=== PATIENT | female | born 1935 | race Caucasian/White ===

== ENCOUNTER 2019-06-21 13:58 | Inpatient (IN) | payer OTHER ==
[~2019-06-21] VITALS: Ht 152.4 cm; Wt 77.3 kg
[~2019-06-21 13:58] MED LIST: ENABLEX15 MG; EVISTA; FLOMAX PO; NORCO 5-325 TA1 EACH PO; QUINAPRIL 20 MG20 MG PO; QUINU5 PD; ZOFRAN ODT4 MG PO
[2019-06-21 13:59] VITALS: BP 147/64
[2019-06-21 15:24] LABS: ABSOLUTE NEUTROPHILS 11.2 thou/uL (1.4-8.2); BASOPHILS 0.4 % (0.0-2.0); EOSINOPHILS 1.1 % (0.0-3.0); HEMATOCRIT 42.2 % (37.0-47.0); HEMOGLOBIN 13.9 gm/dL (12.0-15.0); LYMPHOCYTES 9.8 % (24.0-44.0); MCH 29.5 pg (26.0-34.0); MCV 89.3 fL (80.0-100.0); MONOCYTES 10.2 % (1.0-8.0); PLATELET COUNT 266 thou/uL (150-400); POLYS 78.5 % (36.0-66.0); RBC 4.73 mil/uL (4.20-5.00); RDW 14.6 % (10.5-14.5); WBC 14.3 thou/uL (4.0-11.0)
[2019-06-21 15:34] LABS: CALCIUM 9.2 mg/dL (8.5-10.1); CREATININE 0.9 mg/dL (0.6-1.0); POTASSIUM 4.3 mmol/L (3.5-5.1)
[2019-06-21 15:39] LABS: ALBUMIN 3.2 g/dL (3.4-5.0)
[2019-06-21 18:43] VITALS: BP 147/64
[2019-06-21 18:52] VITALS: BP 147/64
[2019-06-21 19:40] VITALS: BP 180/75
--- NOTE | 2019-06-22 04:11 | NUR ---
PATIENT ARRIVED ON UNIT AT 1919 VIA CART. ED PERSONEL ACCOMPANIED. UP SOON AFTER. DENIES PAIN. MILAGRO LOWER EXT RED AND EDAMATOUS. UP TO BSC WITH ASSIST OF 2 AND WALKER. SLEPT MOST OF NIGHT.
[2019-06-22 05:28] LABS: ABSOLUTE NEUTROPHILS 9.8 thou/uL (1.4-8.2); BASOPHILS 0.3 % (0.0-2.0); EOSINOPHILS 2.5 % (0.0-3.0); HEMATOCRIT 37.5 % (37.0-47.0); HEMOGLOBIN 12.5 gm/dL (12.0-15.0); LYMPHOCYTES 9.9 % (24.0-44.0); MCH 29.6 pg (26.0-34.0); MCHC 33.2 g/dL (28.0-37.0); MCV 89.1 fL (80.0-100.0); MONOCYTES 9.8 % (1.0-8.0); PLATELET COUNT 257 thou/uL (150-400); POLYS 77.5 % (36.0-66.0); RDW 14.1 % (10.5-14.5); WBC 12.6 thou/uL (4.0-11.0)
[2019-06-22 06:03] LABS: CALCIUM 8.4 mg/dL (8.5-10.1); CREATININE 0.7 mg/dL (0.6-1.0); POTASSIUM 4.5 mmol/L (3.5-5.1)
--- NOTE | 2019-06-22 08:59 | NUR ---
WOUND CARE CONSULT; WAS CONSULTED IN ERROR. THIS PATIENT HAS ONLY LYMPHEDEMA MANAGED BY PHYSICAL THERAPY (TANI) WHO HAS ALREADY SEEN THIS PATIENT. NO NEED TO FOLLOW; I WILL D/C CONSULT
[2019-06-22 09:56] VITALS: BP 133/55
--- NOTE | 2019-06-22 12:12 | NUR ---
Case opened to follow for dc planning. Pt is a&ox4 and indicates that she lives with her spouse of 60 years at [facility]. She uses a rollarwalker, cane and a scooter as needed. They have meals and housekeeping provided as well as many activites. Their only child, Dterich Zimmerman, lives in [place] and is aware that she is here. She goes 2xwkly to outpt lymphodema therapy. She reports her spouse to be in good health. She is not interested in SNF or HH,but would discuss further if recommended. She is anticipating dc to home with outpt f/u. CM role introduced. Will follow. Pt is on iv atb. Her pcp is Dr. Rodriguez.
--- NOTE | 2019-06-22 15:06 | NUR ---
PT A&OX4, IV INTACT IN L AC. TRANSFERS WITH ASSIST AND WALKER. BILAT. LOWER EXTREMITITES ARE WRAPPED BY PT/OT. TOLERATING PO PAIN MEDS WELL AND HAS A GOOD APPETITE. SPOUSE AT BEDSIDE. WILL CONT POC.
[2019-06-22 18:29] VITALS: BP 163/58
--- NOTE | 2019-06-22 19:23 | NUR ---
DRSG TO R LOWER EXTREMITY CHANGED ORDERED W/O ANTIBIOTIC TOPICAL MED WAS NOT AVAILABLE.
[2019-06-22 20:08] VITALS: BP 146/67
--- NOTE | 2019-06-23 04:17 | NUR ---
PATIENT ALERT AND ORIENTED X4. C/O PAIN X1, MED GIVEN. INC OF URINE. BED CHANGED WELL DRESSING ON MILAGRO LOWER EXT. REMAINS ON BEDREST. SLEPT MOST OF THE NIGHT.
[2019-06-23 06:31] LABS: HEMATOCRIT 38.4 % (37.0-47.0); HEMOGLOBIN 12.7 gm/dL (12.0-15.0); MCH 29.4 pg (26.0-34.0); MCV 88.9 fL (80.0-100.0); RBC 4.32 mil/uL (4.20-5.00); RDW 14.4 % (10.5-14.5)
[2019-06-23 06:57] LABS: ALBUMIN 2.1 g/dL (3.4-5.0); CALCIUM 8.3 mg/dL (8.5-10.1); CREATININE 0.8 mg/dL (0.6-1.0); POTASSIUM 4.1 mmol/L (3.5-5.1); TOTAL BILIRUBIN 0.8 mg/dL (<0.1-1.0); TOTAL PROTEIN 5.3 g/dL (6.4-8.2)
[2019-06-23 08:01] VITALS: BP 150/72
--- NOTE | 2019-06-23 09:42 | NUR ---
Nutrition: Pt assessed d/t RD identified need. Here for cellulitis of foot, w/ R LE venous stasis ulcers. Hx CHF, chronic lymphedema, HTN, severe aortic stenosis. On a heart healthy diet, witnessed almost 100% of breakfast completed. Pt denies any nutrition concerns, reports a great, stable appetite. States she eats well balanced meals at home, is not picky and eats multiple meals per day. Denies any known weight changes/loss; no weight hx in EMR to review. RD explained importance of good nutrition from variety of protein sources and also encouraged lots of fruits/vegetables. Pt consumes all of the above in plentiful. Had skim milk, turkey sausage, macanese toast this AM. Reviewed upcoming protein items on menus. Note mention of malnutrition in provider notes - defer dx at this time. Low nutrition risk.
--- NOTE | 2019-06-23 14:19 | NUR ---
S/W DR RODRIGUEZ, WITH PT AND WITH HER HSUBAND AND DISCUSSED SNF [facility] POSSIBILITIES. PT'S SPOUSE WOULD LIKE TO GO TO A [facility] FACILITY IF POSSIBLE. DISCUSSED [facility] VALENTIN. HE IS GOING TO CALL SOMEONE AND GET BACK WITH ME. HE IS INTERESTED IN [facility], LEFT MESSAGE WITH THEM TO SEE IF THEY ACCEPT [facility].
--- NOTE | 2019-06-23 16:12 | NUR ---
RECEIVED CALL BACK FROM PT'S AND HE IS INSISTENT ON PT BEING EVALUATED FOR [facility]. S/W PETER AT [facility] AND FAXED REFERRAL TO HER. FAXED SKILLED [facility] LIST TO PT'S ALSO & ASKED HIM TO CHOOSE 3 SKILLED FACILITIES FOR BACK-UP. FOLLOWING.
[2019-06-23 19:35] VITALS: BP 148/85
--- NOTE | 2019-06-23 23:07 | HC ---
[facility] [place] [address] CONSULTATION Name: GAGE DELACRUZ Room #: 437-P [facility] IN M.R.#: [id number] Admission: 06/21/19 Attend Phys: Gabriel Villegas MD Discharge: Date of : 34 Report #: [id number] THIS REPORT FOR: //name// CC: Gabriel Rodriguez INFECTIOUS DISEASE CONSULTATION REASON FOR CONSULTATION: I was asked to evaluate concerning right lower extremity venous stasis, wound infection, and cellulitis. HISTORY OF PRESENT ILLNESS: The patient is an 84-year-old with underlying severe aortic stenosis, status post tissue valve replacement. She has chronic lymphedema. She presents now with increased pain, swelling, and erythema involving the right lower extremity. Denies any fever, chills or sweats. She has had issues with this for some time. She is nondiabetic. No tobacco use. No specific trauma. ALLERGIES: None known. MEDICATIONS: Quinapril prior to her admission. Now on vancomycin. PAST MEDICAL HISTORY: Hypertension, lymphedema, aortic stenosis, status post tissue valve replacement, congestive heart failure, hysterectomy, laparoscopic cholecystectomy, nephrolithiasis, coronary bypass grafting, right shoulder repair, cataract surgery. FAMILY HISTORY: Noncontributory. SOCIAL HISTORY: Nonsmoker, no significant alcohol intake. REVIEW OF SYSTEMS: Denies any cough, sputum, nausea, vomiting, diarrhea, dysuria or frequency. No visual complaints. No oral lesions or dental issues. No arthritis symptoms other than stiffness. Denies any neurologic changes. No diabetes. No issues with blood clots or bleeding. Full 10-point review was negative other than what has been described above. PHYSICAL EXAMINATION: VITAL SIGNS: Afebrile and hemodynamically stable. GENERAL: She was obese. EXTREMITIES: She has had 3+ lower extremity edema on the right, 2+ on the left. Both lower extremities were wrapped with gauze wrapping followed by Rajat wraps. These were just changed. She had evidence of cellulitis proximal calf on the right extending up into her thigh. Mild tenderness in the medial thigh. Toes were warm to touch. Good capillary refill. Sensation intact bilaterally. EYES: Without scleral icterus. MOUTH: Without mucositis. [facility] [address] [place] [address] CONSULTATION Name: GAGE DELACRUZ Room #: 437-P [facility] IN M.R.#: [id number] Admission: 06/21/19 Attend Phys: Gabriel Villegas MD Discharge: Date of : 34 Report #: [id number] NECK: Supple. LUNGS: Clear, without adventitial sounds. HEART: Regular with crisp valve sound. ABDOMEN: Soft, nontender, obese. No hepatosplenomegaly or mass. EXTREMITIES: As noted. Mood pleasant. No evidence of depression or anxiety. NEUROLOGIC: Cranial nerves intact. Strength in upper and lower extremities was symmetric. Sensation to touch normal upper and lower extremities. LABORATORY STUDIES: Reviewed. MICROBIOLOGY: Reviewed. X-ray of the right foot soft tissue swelling. No other bony changes other than osteopenia. ASSESSMENT: 1. Right lower extremity venous stasis disease with chronic lymphedema and ulcerations with secondary infection. 2. Hypertension. 3. Aortic stenosis, status post tissue prosthetic valve. 4. Urinary incontinence. 5. Coronary artery disease. RECOMMENDATIONS: We will continue IV antibiotic therapy, wound care, and edema control. <ELECTRONICALLY SIGNED> By: Thomas Abreu MD 06/23/19 [id number] Thomas Abreu MD /nt
--- NOTE | 2019-06-24 04:47 | NUR ---
PATIENT ALERT AND ORIENTED X4. NO C/O PAIN. SLEPT MOST OF NIGHT. INC OF BLADDER. MILAGRO WRAPS ON LOWER EXT.
[2019-06-24 05:49] LABS: HEMOGLOBIN 13.1 gm/dL (12.0-15.0); MCH 29.3 pg (26.0-34.0); MCHC 32.9 g/dL (28.0-37.0); MCV 89.1 fL (80.0-100.0); RBC 4.48 mil/uL (4.20-5.00); RDW 14.8 % (10.5-14.5); WBC 9.5 thou/uL (4.0-11.0)
[2019-06-24 06:07] LABS: CREATININE 0.9 mg/dL (0.6-1.0); POTASSIUM 4.2 mmol/L (3.5-5.1)
--- NOTE | 2019-06-24 14:41 | NUR ---
RECEIVED CALL FROM LAI FRANCO SAYING THAT INS IS SAYING THAT PT IS NOT CURRENTLY MEETING ACUTE REHAB THERAPY CRITERIA AT THIS POINT. TRIED TO CALL PT'S TO DISCUSS THIS AND MESSAGE ELFT FOR HIM TO ALERT OF THE ABOVE INFO & TO ASK HIM IF HE HAD REVIEWED THE SKILLED LIST THAT WAS FAXED TO HIM YESTERDAY FOR A BACK-UP PLAN.
--- NOTE | 2019-06-24 17:55 | NUR ---
ASSUMED CARE AROUND 0730. AXOX3. WOUND CARE RENDERED BY SAMUEL FREIRE AND WOUND CARE TEAM. PERSISTENT PAIN TO BLE AND ULE ADDRESSED TO AND NEW ORDERED RECEIVED. NO S/S ACUTE DISTRESS NOTED OR REPORTED AT THIS TIME. WILL CONT TO MONITOR FOR ANY CHANGES IN CONDITION.
[2019-06-24 19:23] VITALS: BP 151/52
[2019-06-25 04:00] VITALS: BP 144/76
--- NOTE | 2019-06-25 04:30 | NUR ---
PATIENT ALERT AND ORIENTED X4. NO C/O PAIN DURING THE NIGHT. COOPERATIVE WITH CARE. IVPB INFUSED W/O COMPLICATION. RESTING QUIETLY AT TIME OF NOTE. WILL MONITOR.
--- NOTE | 2019-06-25 18:05 | NUR ---
PT ASSESSED AT START OF SHIFT. TURNS W/ ASSIST. PT DECLINED TO GET OUT OF BED TODAY BUT AGREED TO GET UP TO CHAIR TOMORROW. EATING AND DRINKING FINE. NO BM FOR FEW DAYS. DENIES PAINS. DSNGS INTACT TO MILAGRO LE PER LYMPHEDEMA SPECIALIST TO BE CHANGED TWICE A WEEK.
[2019-06-25 18:36] VITALS: BP 165/76
[2019-06-25 20:33] VITALS: BP 157/76
--- NOTE | 2019-06-26 04:00 | NUR ---
PT LYING IN BED. REMAINS INCONTINENT OVER NIGHT. DENIES PAIN. RESTING COMFORTABLY. NO NEEDS VOICED. CALL LIGHT WITHIN REACH. WILL CONTINUE TO PROVIDE FREQUENT OBSERVATION.
[2019-06-26 09:11] VITALS: BP 167/81
--- NOTE | 2019-06-26 16:57 | NUR ---
PT ASSESSED AT START OF SHIFT. HAD SOFT FORMED BM THIS AM AND MIRALAX GIVEN WELL. EATING AND DRINKING FINE. TURNING Q2 HRS. NOT WANTING TO GET UP TO THE CHAIR. DR. FONTANA HERE THIS AFTERNOON AND CONFIRMED TO ALLOW LYMPHEDEMA THERAPIST TO DO THE DSNG CHANGES. NO C/O PAIN.
[2019-06-26 17:34] VITALS: BP 152/63
[2019-06-26 19:23] VITALS: BP 159/88
--- NOTE | 2019-06-27 01:07 | NUR ---
PT LYING IN BED. REMAINS INCONTINENT. DENIES PAIN. RESTING COMFORTABLY. NO NEEDS VOICED. CALL LIGHT WITHIN REACH. WILL CONTINUE TO PROVIDE FREQUENT OBSERVATION.
--- NOTE | 2019-06-27 07:55 | HC ---
[facility] [place] [address] CONSULTATION Name: GAGE DELACRUZ Room #: 437-P [facility] IN M.R.#: [id number] Admission: 06/21/19 Attend Phys: Gabriel Villegas MD Discharge: Date of : 34 Report #: [id number] THIS REPORT FOR: //name// CC: [facility] DATE OF SERVICE: 06/22/2019 HISTORY OF PRESENT ILLNESS: This is an 84-year-old female patient who was admitted to the hospital with lymphedema to the lower extremities and cellulitis of the right leg. She denies significant pain and seems to be in relatively good spirits. She knows that she has a chronic ulceration to the right foot and ankle region. There is draining and malodorous, but overall she states that she is in good spirits. PAST MEDICAL HISTORY: Positive for history of severe aortic stenosis, hypertension, lymphedema, congestive heart failure secondary to aortic stenosis. She has had previous kidney stones, coronary artery disease and previous right shoulder surgery. SOCIAL HISTORY: The patient admits to occasional alcohol consumption. Denies tobacco use. FAMILY HISTORY: Positive for cancer. ALLERGIES: No known drug allergies. MEDICATIONS: Include hydrocodone, ondansetron, Zosyn, and quinapril. REVIEW OF SYSTEMS: CONSTITUTIONAL: The patient denies fever, chills or weight loss. NEUROLOGICAL: The patient denies focal weakness, numbness or tingling. EYES: The patient denies visual changes, redness, or drainage. ENT: The patient denies earache, nasal drainage, sore throat. CARDIOVASCULAR: The patient denies chest pain or palpitations or diaphoresis. PULMONARY: The patient denies cough or shortness of breath. GASTROINTESTINAL: The patient denies nausea, vomiting, diarrhea or abdominal pain. ORTHOPEDIC: The patient complains of swelling, some pain, drainage and ulceration to the right ankle. Other systems in a 14-point review of systems are negative. PHYSICAL EXAMINATION: VITAL SIGNS: At this time include temperature 36.8, pulse 87, respiratory rate 18 and blood pressure 133/55. GENERAL: This is a chronically ill-appearing female patient who appears to be [facility] [address] [place] [address] CONSULTATION Name: GAGE DELACRUZ Room #: 437-P [facility] IN M.R.#: [id number] Admission: 06/21/19 Attend Phys: Gabriel Villegas MD Discharge: Date of : 34 Report #: [id number] in no distress. HEENT: Head normocephalic. Nose and throat clear. NECK: Supple. LUNGS: Clear. HEART: Regular rhythm. ABDOMEN: Soft. Bowel sounds are present. EXTREMITIES: Lower extremities demonstrate 2-3+ edema, more so on the right than the left. She has significant circumferential ulcerations with weeping and crusting involving the right ankle and dorsal foot area. There is odor present. A culture has been obtained by myself at the bedside today. LABORATORY DATA: Sodium 136, potassium 4.5, chloride 105, CO2 20, BUN 14, creatinine 0.7, glucose of 99. Lactic acid is 1.1. CRP is 153.4, total protein 7.0, albumin 3.2. White blood cell count is 12.6, hemoglobin 12.5. CLINICAL IMPRESSION: 1. Lymphedema, bilateral lower extremities. 2. Cellulitis of the right lower leg. 3. Venous type ulceration to the right foot and anterior ankle. RECOMMENDATIONS: At this point in time, culture and sensitivity was obtained. We will recommend empiric antibiotic therapy, pending cultures. We will start her on gentamicin ointment, Xeroform to the right leg, lymphedema therapy on the left with wrapping, elevation of the right leg, resume lymphedema therapy when the cellulitis has subsided, continuation of current medications. PT, OT as tolerated. I appreciate being asked to see her in consultation. <ELECTRONICALLY SIGNED> By: Tyler Antunez MD 06/27/19 [id number] Tyler Antunez MD /nt
[2019-06-27 08:53] VITALS: BP 154/100
--- NOTE | 2019-06-27 14:55 | NUR ---
FAXED REFERRAL TO [facility] SPOKE WITH HARSHA IN ADM SHE RECEIVED REFERRAL AND CAN ACCEPT WILL SUBMIT FOR AUTH. DP TO FOLLOW.
--- NOTE | 2019-06-27 16:25 | NUR ---
[facility] RECIVED INSURANCE AUTH TO ACCEPT PT BUT THEY DON'T HAVE ANY MORE BEDS OPEN TODAY. THEY HAVE A BED TOMORROW AND ACCEPT PT TOMORROW. THEY WANT TO ARRANGE MORTGAGE LOAN COUNSELOR VIA VAN AT 10:00AM. AWAITING PHYSICIAN APPROVAL FOR AM DC TOMORROW.
[2019-06-27 17:05] VITALS: BP 183/77
--- NOTE | 2019-06-27 18:49 | NUR ---
PT ALERT AND ORIENTED TIMES FOUR. EVENING BP ELEVATED NEW BP MEDICATION. GIVEN. OTHER VSS. PT DENIES PAIN/SOA. PT TOLERATES MEDS AND MEALS. PT UP TO CHAIR FOR SOME PART OF THE SHIFT. PT SLOWLY [facility] POC GOALS.
[2019-06-27 19:22] VITALS: BP 150/72
[2019-06-28 00:50] VITALS: BP 143/65
[2019-06-28 04:30] VITALS: BP 187/83
--- NOTE | 2019-06-28 05:14 | NUR ---
ASSUMED PT CARE AROUND 1900. A&OX4. DENIES ANY PAIN. PT IS PLEASANT AND COOPERATIVE. PT DID NOT SLEEP MUCH DURING THE NIGHT. REPOSITIONED TO PREVENT SKIN BREAKDOWN. BLE ELEVATED ON PILLOWS. BLE DRESSINGS C/D/I. FALL PRECAUTIONS IN PLACE. NO MAJOR COMPLAINTS THIS SHIFT. PROGRESSING TOWARD POC GOALS.
[2019-06-28 06:23] LABS: HEMATOCRIT 41.4 % (37.0-47.0); HEMOGLOBIN 13.6 gm/dL (12.0-15.0); MCH 29.4 pg (26.0-34.0); MCHC 32.9 g/dL (28.0-37.0); MCV 89.3 fL (80.0-100.0); RBC 4.63 mil/uL (4.20-5.00); RDW 14.2 % (10.5-14.5); WBC 8.6 thou/uL (4.0-11.0)
[2019-06-28 06:42] LABS: ALBUMIN 2.5 g/dL (3.4-5.0); CALCIUM 8.7 mg/dL (8.5-10.1); CREATININE 0.9 mg/dL (0.6-1.0); MAGNESIUM 2.3 mg/dL (1.8-2.4); POTASSIUM 4.2 mmol/L (3.5-5.1); TOTAL BILIRUBIN 0.4 mg/dL (<0.1-1.0); TOTAL PROTEIN 6.1 g/dL (6.4-8.2)
[2019-06-28 07:47] VITALS: BP 192/80
--- NOTE | 2019-06-28 08:14 | NUR ---
Followup: RD consult received for increased protein intake. RD has assessed pt on 06/21. Eating 100% of meals and at least 30g protein per meal which is sufficient for protein needs for cellulitis. No other nutrition interventions needed at this time. Defer malnutrition dx to provider.
[2019-06-28] MEDS ORDERED: NORCO 5-325 TA1 EAC1 PO (09:59)
[2019-06-28] MEDS ORDERED: GENTAMICIN SULF15 GM TOP (09:59)
[2019-06-28] MEDS ORDERED: TYLENOL325 MG PO (09:59)
[2019-06-28] MEDS ORDERED: ZOSYN 3.3753.375 GM IV (10:51)
--- NOTE | 2019-06-28 13:24 | NUR ---
PT DISCHARGING TODAY TO [facility] FOR SKILLED STAY FAXED DC ORDERS/SUMMARY TO FACILITY RECEIVED CONFIRMATION NOTIFIED YASMEEN IN ADM AT FACILITY AND SHE ARRANGED TRANSPORT BY [facility] FOR 1500 TODAY. FAMILY AT BEDSIDE AND NOTIFIED. UNIT NOTIFIED AND CHART COPY PER US. RN TO CALL REPORT TO [phone].
[2019-06-28 14:07] VITALS: BP 129/50
--- NOTE | 2019-06-28 14:13 | NUR ---
CONSULTED TO PLACE A PICC FOR A PATIENT DISCHARGING TO A SNF WITH IV ANTIBIOTICS. ORDER AND CONSENT NOTED. THE PROCEDURE WELL BENIFITS AND RISKS WERE DISCUSSED WITH THE PATIENT AND SHE VERBALIZED UNDERSTANDING. THE RUE BASILIC WAS WIDLEY PATENT. A #4F SINGLE LUMEN POWER PICC WAS PLACED PER HOSPITAL POLICY AFTER A BEDSIDE TIMEOUT WAS COMPLETED. LINE WAS TRIMMED TO 45CM AND [facility] WITHOUT DIFFICULTY. AFTER A STAT CHEST XRAY THE LINE WAS WITHDRAWN 2CM AND 2ND XRAY CONFIRMED LINE IN GOOD POSITION FOR USE. 4S STAFF NOTIFIED THAT LINE IS RELEASED FOR USE
--- NOTE | 2019-06-28 16:04 | NUR ---
THIS NURSE ASSUMED CARE OF PATIENT AT 0700 THIS AM. SHE WAS EXCITED TO HEAR SHE WAS BEING DISCHARGED TODAY. SHE VOICED NO NEW CONCERNS THIS SHIFT. SHE REMAINED IN BED UNTIL DISCHARGE. SHE REQUIRED A X2 MAX ASSIST WITH GAIT BELT AND WALKER. SHE WAS TRANSPORTED VIA WHEELCHAIR TO [facility] FOR REHAB SERVICES. HER B/P WAS ELEVATED THIS AM 192/80 AND PULSE OF 77. MD WAS NOTIFIED AND SHE ORDERED 25MG OF METOPROLOL PO. THIS NURSE ADMIN. MED AND IT WAS EFFECTIVE B/P DROPPED TO 129/50 AND PULSE OF 74. SHE HAD A SINGLE LINE PICC INSERTED IN HER RIGHT UPPER ARM. PIV D/C'D FROM LEFT FOREARM. THIS NURSE SPOKE TO ANYI HOYT AT [facility] AND GAVE HER A CALL BACK NUMBER IF SHE HAS ANY QUESTIONS OR CONCERNS. PATIENT TO CONTINUE IVPB OF ZOSIN Q8 HOURS AT [place].
--- NOTE | 2019-06-28 16:23 | NUR ---
I AGREE WITH NURSING ASSESSMENT AND NURSING NOTE. REPORT WAS GIVEN TO LAI/AT THE FACILITY/[facility].
== END 2019-06-28 15:59 | DRG 872 ==
LOC: ER 13:58 → EROBS 16:31 → 4S 16:31
PROVIDERS: Hospitalist; Nurse Practitioner; Nurse Practitioner Family; Physician Assistant; ADMIT Internal Medicine
PROC: 02H633Z Insertion of Infusion Device into Right Atrium, Percutaneous Approach (ICD-10-PCS; principal; 2019-06-28)
DX: A41.9 Sepsis, unspecified organism (principal); L03.115 Cellulitis of right lower limb; L97.819 Non-pressure chronic ulcer of other part of right lower leg with unspecified severity; E46 Unspecified protein-calorie malnutrition; R32 Unspecified urinary incontinence; I50.9 Heart failure, unspecified; I89.0 Lymphedema, not elsewhere classified; I87.8 Other specified disorders of veins; I35.0 Nonrheumatic aortic (valve) stenosis; I25.10 Atherosclerotic heart disease of native coronary artery without angina pectoris; I11.0 Hypertensive heart disease with heart failure; Z66 Do not resuscitate; K59.00 Constipation, unspecified; E66.9 Obesity, unspecified; B96.5 Pseudomonas (aeruginosa) (mallei) (pseudomallei) as the cause of diseases classified elsewhere; B95.2 Enterococcus as the cause of diseases classified elsewhere; Z90.710 Acquired absence of both cervix and uterus; Z90.49 Acquired absence of other specified parts of digestive tract; Z87.442 Personal history of urinary calculi; Z95.2 Presence of prosthetic heart valve; Z95.1 Presence of aortocoronary bypass graft; Z68.33 Body mass index [BMI] 33.0-33.9, adult; Z79.899 Other long term (current) drug therapy
CPT/HCPCS: 10195; 27000

== ENCOUNTER 2021-01-04 13:18 | Inpatient (IN) | payer MEDICARE ==
[~2021-01-04] VITALS: Ht 160 cm; Wt 82.1 kg
[~2021-01-04 13:18] MED LIST changes: +GENTAMICIN SULF15 GM TOP; +NORCO 5-325 TA1 EAC1 PO; +TYLENOL325 MG PO; +ZOSYN 3.3753.375 GM IV
[2021-01-04 13:22] VITALS: BP 120/63
[2021-01-04 13:55] LABS: URINE BILIRUBIN NEGATIVE (Negative); URINE BLOOD NEGATIVE (Negative); URINE CLARITY CLEAR; URINE COLOR YELLOW; URINE GLUCOSE-RANDOM* NEGATIVE (Negative); URINE KETONES NEGATIVE (Negative); URINE LEUKOCYTES-REFLEX NEGATIVE (Negative); URINE NITRITE-REFLEX NEGATIVE (Negative); URINE PROTEIN (DIPSTICK) NEGATIVE (Negative); URINE UROBILINOGEN 0.2 E.U./dl (0.2-1.0)
[2021-01-04] MEDS ORDERED: ATORVASTATIN CA20 MG PO (14:10)
[2021-01-04 14:11] LABS: ABSOLUTE NEUTROPHILS 6.7 thou/uL (1.4-8.2); BASOPHILS 0.3 % (0.0-2.0); EOSINOPHILS 2.3 % (0.0-3.0); HEMATOCRIT 43.7 % (37.0-47.0); HEMOGLOBIN 14.4 gm/dL (12.0-15.0); LYMPHOCYTES 17.8 % (24.0-44.0); MCH 30.3 pg (26.0-34.0); MCHC 32.9 g/dL (28.0-37.0); MCV 92.2 fL (80.0-100.0); MONOCYTES 7.2 % (1.0-8.0); PLATELET COUNT 297 thou/uL (150-400); POLYS 72.4 % (36.0-66.0); RBC 4.74 mil/uL (4.20-5.00); WBC 9.2 thou/uL (4.0-11.0)
[2021-01-04] MEDS ORDERED: CLONIDINE HCL0.1 MG PO (14:11)
[2021-01-04] MEDS ORDERED: QUINAPRIL HCL20 MG PO (14:11)
[2021-01-04] MEDS ORDERED: FUROSEMIDE 40 M40 M1 PO (14:11)
[2021-01-04] MEDS ORDERED: METOPROLOL TART25 MG PO (14:11)
[2021-01-04] MEDS ORDERED: K-DUR 20 MEQ T20 MEQ PO (14:11)
[2021-01-04 14:20] LABS: CALCIUM 9.2 mg/dL (8.5-10.1); CREATININE 1.2 mg/dL (0.6-1.0); POTASSIUM 4.8 mmol/L (3.5-5.1)
[2021-01-04 14:26] LABS: ALBUMIN 3.6 g/dL (3.4-5.0); TOTAL BILIRUBIN 0.6 mg/dL (0.2-1.0); TOTAL PROTEIN 6.8 g/dL (6.4-8.2)
[2021-01-04] MEDS ORDERED: NYSTATIN15 G2 TOP (14:41)
[2021-01-04] MEDS ORDERED: CLOTRIMAZOLE TOP (14:41)
[2021-01-04 17:16] VITALS: BP 156/73
[2021-01-04 17:30] VITALS: BP 156/73
[2021-01-04 18:15] VITALS: BP 151/85
--- NOTE | 2021-01-04 18:52 | NUR ---
Admitted from the ER due to cellulitis and dehydration; transferred to bed safely. On MS, not on telemetry no complains and signs of chest pain, crushing sensation heaviness. On regular diet- tolerating well; no nausea, no vomiting and no abdominal pain noted. On room air. Vital signs stable. As per AUTOMOBILE REPOSSESSOR, pt is usually continent but needs a lot of encouragement to use bedside commode/toilet; frequent toileting needs to be offered. With SL at R hand- NS ordered at 75cc/hr; on IV antibiotics. Falls bundle in place. Buttocks with ?yeast infection/?cellulitis- photo to be taken; consult to be done. Patient able to answer orientation questions but can be confused and forfetful; oriented re: [facility] policy and plan of care. Admission education and history done; assessment to be done. Admission forms to be signed- night RN informed re: admission checklist to be completed. No complains of pain made during assessment. To continue monitoring patient.
[2021-01-04 22:07] VITALS: BP 150/79
[2021-01-05 04:53] LABS: ABSOLUTE NEUTROPHILS 5.9 thou/uL (1.4-8.2); BASOPHILS 0.5 % (0.0-2.0); EOSINOPHILS 2.9 % (0.0-3.0); HEMATOCRIT 38.6 % (37.0-47.0); LYMPHOCYTES 24.4 % (24.0-44.0); MCH 30.7 pg (26.0-34.0); MCHC 33.6 g/dL (28.0-37.0); MCV 91.2 fL (80.0-100.0); MONOCYTES 7.9 % (1.0-8.0); PLATELET COUNT 283 thou/uL (150-400); POLYS 64.3 % (36.0-66.0); RBC 4.23 mil/uL (4.20-5.00); RDW 14.1 % (10.5-14.5); WBC 9.2 thou/uL (4.0-11.0)
[2021-01-05 05:03] LABS: CALCIUM 8.7 mg/dL (8.5-10.1); CREATININE 0.9 mg/dL (0.6-1.0); MAGNESIUM 2.2 mg/dL (1.8-2.4)
--- NOTE | 2021-01-05 05:24 | NUR ---
Pt. rested quietly during the night when checked on during frequent rounds. Her admisssion assessment is completed. She refused to sign some of her admit paperwork because she wanted her spouse present. She is incontinent and pure wick catheter placed. Buttocks is red and cream applied as ordered. No c/o pain or discomfort.
[2021-01-05 07:30] VITALS: BP 150/79
--- NOTE | 2021-01-05 11:12 | NUR ---
ASSUMED PT CARE AROUND 0700. PT ALERT X ORIENTED X4. ON ROOM AIR. IV RT HAND WITH NS/75MLS/HR. INCONTINENT OF BLADDER. FEMALE CATHETER IN PLACE. REDNESS AT THE BUTTOCK AREA, APPLYING PRESCRIBED OINTMENT. NO CODE STATUS. OT TRIED TO GET THE PT UP, BUT COULD'NT, PT WAS SO NERVOUS WHILE TRYING TO GET HER UP. GIVEN ORAL CARE. FALL PRECAUTION IN PLACE. CALL LIGHT IN REACH. WILL CONTINUE TO MONITOR.
--- NOTE | 2021-01-06 02:13 | NUR ---
ASSUMED CARE OF PT AT 1900. PT IS A/O X4 WITH FORGETFULLNESS UPON INITIAL ASSESSMENT. THE NIGHT PROGRESSED PT IS NOW A/O X1 AND IS CONFUSED. PLEASANT AND COOPERATIVE. ANXIOUS WITH BEING REPOSITIONED. ROOM AIR, NO TELEMETRY. VSS. AFEBRILE. INCONTINENT OF BOWEL AND BLADDER. FEMALE EXTERNAL IN PLACE. CREAM APPLIED TO SORE ON BOTTOM. IV TO RIGHT HAND INFILTRATED. REPLACED IN LEFT HAND. DENIES C/O PAIN OR DISCOMFORT. MEDICATIONS GIVEN PER MAR. FALL PRECAUTIONS IMPLEMENTED, CALL LIGHT IS WITHIN REACH.
[2021-01-06 03:05] VITALS: BP 169/85
[2021-01-06 07:05] VITALS: BP 147/53
--- NOTE | 2021-01-06 07:54 | HC ---
[facility] [place] [address] CONSULTATION Name: GAGE DELACRUZ Room #: 450-P ADM IN M.R.#: [id number] Admission: 01/04/21 Attend Phys: Hang Ray MD Discharge: Date of : 34 Report #: [id number] THIS REPORT FOR: cc: Mitchell Rodriguez MD, Rene P. MD [place], Allen B. MD ~ DATE OF SERVICE: 01/05/2021 WOUND CARE CONSULTATION NOTE REASON FOR CONSULTATION: Sacral pressure sore, fungal dermatitis. HISTORY OF PRESENT ILLNESS: The patient is an 85-year-old woman admitted for general weakness, debility and some mental status change. Suspect she may have urinary tract infection. Family had noted she has a rash in her inner thigh and coccyx area. Wound care is consulted to inspect her sacral, gluteal area and groin creases. PAST MEDICAL HISTORY: Hypertension, hyperlipidemia, severe aortic stenosis, lymphedema, possible urinary tract infection with mild neurocognitive dysfunction or dementia, possible acute toxic encephalopathy, cataracts. PAST SURGICAL HISTORY: Aortic valve surgery. MEDICATIONS IN THE HOSPITAL: Include Nystatin, metoprolol, betamethasone, clotrimazole, atorvastatin, ceftriaxone, Zofran, acetaminophen. ALLERGIES: No known drug allergies. LABORATORY DATA: Albumin 3.6. White blood count 9.2. Urinalysis is negative. PHYSICAL EXAMINATION: GENERAL: Shows an alert, elderly woman who is pleasant and conversant. HEENT: Mucous membranes are moist. LUNGS: Respirations unlabored. ABDOMEN: Obese and soft. EXTREMITIES: Mild lymphedema. Mild rash in the groin creases. Examination of the sacral-gluteal area shows mild chronic redness of the skin in the sacral and bilateral upper gluteal area. There is no open wound or skin breakdown. We classified as stage 1 pressure sore, amenable to barrier cream. IMPRESSION: 1. Morbid obesity. 2. Immobility. 3. Rule out urinary tract infection. [facility] [address] [place] [address] CONSULTATION Name: GAGE DELACRUZ Room #: 450-[facility] IN .R.#: [id number] Admission: 01/04/21 Attend Phys: Hang Ray MD Discharge: Date of : 34 Report #: [id number] 4. Mild cognitive decline or dementia. 5. Mild lymphedema. 6. Fungal dermatitis of groin creases. PLAN: 1. Continue nystatin and clotrimazole and betamethasone. 2. Stage 1 pressure injury of sacral-gluteal area, barrier cream and repositioning. Wound care team will follow. <ELECTRONICALLY SIGNED> By: Cam Colorado MD 01/06/21 0754 [id number] Cam Colorado MD /nt
[2021-01-06 16:15] VITALS: BP 164/65
[2021-01-06 20:00] VITALS: BP 149/72
--- NOTE | 2021-01-06 20:27 | NUR ---
ASSUMED PT CARE AROUND 0700. PT ALERT X OREINTED X 4. ON ROOM AIR. INCONTINENCE OF BLADDER, SO ON FEMALE CATHETER. IV LEFT HAND/NS/75MLS/HR. NO C/O PAIN. NO CODE, MED SURG PT. FALL PRECAUTION IN PLACE. CALL LIGHT IN REACH. WILL CALL APPROPRIATELY. HOURLY ROUNDS DONE. SHIFTB REPORT GIVEN TO JEWELRY ESTIMATOR.
--- NOTE | 2021-01-07 03:22 | NUR ---
recieved pt at shift change. no issues noted no c/o pain or discomfort. pure wick in place patent. quiet calm demeanor. slept thru noc .
[2021-01-07 07:10] VITALS: BP 152/68
--- NOTE | 2021-01-07 13:55 | NUR ---
PT ADMITTED RELATED TO CELLULITIS. CM REVEIWED CHART AND SPOKE WITH CARE TEAM. PT HAS WC AND IC CONSULTS. CARE TEAM INDICATING THAT PT NEED SKILLED POST ACUTE CARE STAY UPON DC. GINGER SPOKE WITH PT'S DTR/DPOA WHO CALLED THE UNIT [facility] WHO RESIDES IN [place]. SHE INDICATED THAT PT AND SPOUSE RESIDE AT [facility] IN AN IN APARTMENT. PT HAS PD SERVICES 3 X'S A DAY TO ASSIST WITH ADLS IN THAT SETTING. PT HAS A WC, HOSPITAL BED, WALKERS, AND A LIFT CHAIR FOR USE AT HOME. FAMILY ASKED THAT REFERRAL BE SENT TO [facility] AND THEN ASKED THAT REFERRAL BE SENT TO [facility]. CM SENT TO [facility] AND THEY INDICATED THAT THEY DON'T TAKE PT'S UNSURANCE THEY HAVE NOT RECEIVED PAYMENT IN THE PAST. GINGER CONVEYED THIS TO PT'S DTR AND SHE SPOKE WITH KATIE IN ADMISSIONS THERE. DTR INDICATED THAT REFERRAL COULD BE SENT TO [facility]. GINGER SPOKE WITH ANJELICA AT AND SHE INDICATED THAT THEY CAN ACCEPT AND HAVE SUBMITTED FOR INSURANCE AUTH. CM TO FOLLOW INDICATED WITH DC PLANNING.
--- NOTE | 2021-01-07 15:45 | NUR ---
ASSUMED CARE OF PATIENT THIS AM AT SHIFT CHANGE. ASSESSMENT CHARTED. VSS. MEDICATIONS ADMINISTERED PER EMAR. PATIENT IS A&OX4 AND CALLS OUT APPRIOPRIATELY. PATIENT DID NOT GET UP THIS SHIFT AND ENCOURAGED TO REPOSITION. DENIES PAIN. BARRIER CREAM TO NOA AREA; REPORTED INCONTINENCE. PUREWICK IN PLACE. TOLERATING PO INTAKE WELL WITH NO ISSUES. FLUIDS INFUSING ON LFA AT 75MLS/HR W NO ISSUES. AWAITING AUTHORIZATION FOR PLACEMENT. PATIENT DENIES FURTHER NEEDS. WILL CONTINUE TO MONITOR AND FOLLOW PLAN OF CARE
[2021-01-07 16:15] VITALS: BP 139/67
[2021-01-07 19:37] VITALS: BP 179/85
--- NOTE | 2021-01-08 04:31 | NUR ---
Assumed pt care at 1900. A/OX4,forgetful at times but very pleasant. VSS.Denies pain on assessment. Incontinent of bladder,purewick in place with yellow urine noted. Slightly pink between thighs/buttocks,moisture barrier applied. Pt reports she has not had a BM since admission, Miralax offered but pt declined stating it'll happen when ready,BS active,reports passing flatus.IVF infusing via left hand w/o any problems. Fall precautions in place,pt looking forward to dc today.
[2021-01-08 07:08] VITALS: BP 182/82
[2021-01-08 08:15] VITALS: BP 182/82
--- NOTE | 2021-01-08 10:07 | NUR ---
AMALIATENT DENIES AND NEEDS OR CONCERNS. MEDICALLY READY PER DOCTORS TO DISCHARGE. PLAN TO DISCHARGE TO FACILITY THIS AFTERNOON, DISCUSSED WITH CASE MANAGEMENT. AWAITING TIME FOR TRANSPORT.
--- NOTE | 2021-01-08 11:36 | NUR ---
AUTH RECEIVED FOR PT TO DC TO [facility] THIS DAY. CM FAXED ORDERS, SUMMERY, AND NEGATIVE COVID TEST FROM YESTERDAY. [facility] TRANSPORT ARRANGED FOR 1300. CM NOTIFIEF PT AND HER DTR THEY ARE AWARE AND AGREEABLE. CHART COPY MADE. NURSE GIVEN NUMBER FOR REPORT. NO OTHER CM INTERVENTION INDICATED CASE CLOSED.
== END 2021-01-08 13:12 | DRG 602 ==
LOC: ER 13:18 → EROBS 17:13 → 4W 17:13
PROVIDERS: Nurse Practitioner; Nurse Practitioner Family; ADMIT Internal Medicine; ATTEND Internal Medicine
DX: L03.116 Cellulitis of left lower limb (principal); N17.0 Acute kidney failure with tubular necrosis; N39.0 Urinary tract infection, site not specified; I13.0 Hypertensive heart and chronic kidney disease with heart failure and stage 1 through stage 4 chronic kidney disease, or unspecified chronic kidney disease; L03.317 Cellulitis of buttock; L03.315 Cellulitis of perineum; Z79.899 Other long term (current) drug therapy; L03.115 Cellulitis of right lower limb; L89.151 Pressure ulcer of sacral region, stage 1; I50.9 Heart failure, unspecified; B37.2 Candidiasis of skin and nail; E86.0 Dehydration; E78.5 Hyperlipidemia, unspecified; N18.9 Chronic kidney disease, unspecified; I25.10 Atherosclerotic heart disease of native coronary artery without angina pectoris; R32 Unspecified urinary incontinence; M19.90 Unspecified osteoarthritis, unspecified site; E66.01 Morbid (severe) obesity due to excess calories; F03.90 Unspecified dementia, unspecified severity, without behavioral disturbance, psychotic disturbance, mood disturbance, and anxiety; Z20.822 Contact with and (suspected) exposure to COVID-19; Z66 Do not resuscitate; Z95.2 Presence of prosthetic heart valve; Z90.710 Acquired absence of both cervix and uterus; Z68.32 Body mass index [BMI] 32.0-32.9, adult; Z90.49 Acquired absence of other specified parts of digestive tract; Z95.1 Presence of aortocoronary bypass graft; Z98.42 Cataract extraction status, left eye; Z98.41 Cataract extraction status, right eye
CPT/HCPCS: 10040